=== PATIENT | female | born 1955 | race Caucasian/White ===

== ENCOUNTER 2017-03-27 23:12 | Emergency (ER) | payer MEDICAID ==
[~2017-03-27] VITALS: Ht 152.4 cm; Wt 49.6 kg
[2017-03-27 23:14] VITALS: BP 113/66
== END 2017-03-28 00:11 | disposition home or self-care (01) ==
LOC: ED 03-28 00:09
DX: H10.232 Serous conjunctivitis, except viral, left eye (principal)
CPT/HCPCS: 99283

== ENCOUNTER 2017-08-09 13:27 | Emergency (ER) | payer MEDICAID ==
[~2017-08-09] VITALS: Ht 152.4 cm; Wt 45.7 kg
[2017-08-09 13:34] VITALS: BP 113/57
[2017-08-09] MEDS ORDERED: FAMOTIDINE 20 MG TABLET PO ONE (14:30)
[2017-08-09] MEDS ORDERED: FAMOTIDINE 20 MG TABLET ONE (14:50)
[2017-08-09] MEDS ORDERED: TRIAMCINOLONE ACETONIDE 40 MG/ML, 1ML IM ONE (15:00)
== END 2017-08-09 15:30 | disposition home or self-care (01) ==
LOC: ED 15:24
DX: R21 Rash and other nonspecific skin eruption (principal)
CPT/HCPCS: 96372; 99283; J3301; Q0177

== ENCOUNTER 2017-12-28 03:53 | Emergency (ER) | payer MEDICAID ==
[~2017-12-28] VITALS: Ht 152.4 cm; Wt 48.1 kg
[2017-12-28 04:41] LABS: MICROSCOPIC AUTO
[2017-12-28 04:43] LABS: CULTURE INDICATED? NO
[2017-12-28 04:51] LABS: BASOPHILS # (AUTO) 0.04 x10^3/uL (0-0.1); BASOPHILS % (AUTO) 1 % (0-1); EOSINOPHILS # (AUTO) 0.27 x10^3/uL (0-0.4); EOSINOPHILS % (AUTO) 3 % (1-7); LYMPHOCYTES # (AUTO) 1.91 x10^3/uL (1-3.4); LYMPHOCYTES % (AUTO) 21 % (22-44); MD NO; MEAN CORPUSCULAR HEMOGLOBIN 25.7 pg (27.0-34.8); MEAN CORPUSCULAR HGB CONC 32.2 g/dL (32.4-35.8); MEAN CORPUSCULAR VOLUME 79.8 fL (80-100); MEAN PLATELET VOLUME 7.4 fL (7.4-10.4); MONOCYTES # (AUTO) 1.12 x10^3/uL (0.2-0.8); MONOCYTES % (AUTO) 12 % (2-9); NEUTROPHILS # (AUTO) 5.81 x10^3/uL (1.8-6.8); NEUTROPHILS % (AUTO) 63 % (42-75); PLATELET COUNT 357 x10^3/uL (130-400); RED BLOOD COUNT 4.21 x10^6/uL (3.82-5.3); RED CELL DISTRIBUTION WIDTH 16.7 % (9.6-15.2)
[2017-12-28 04:58] LABS: ALBUMIN 2.7 g/dL (3.4-5.0); ANION GAP 7 mmol/L (5-15); CALCIUM 8.7 mg/dL (8.5-10.1); CHLORIDE 110 mmol/L (98-107)
[2017-12-28 05:02] LABS: ALANINE AMINOTRANSFERASE 19 U/L (12-78); ALKALINE PHOSPHATASE 84 U/L (45-117); BILIRUBIN,TOTAL 0.3 mg/dL (0.2-1.0); CREATININE 0.74 mg/dL (0.55-1.02); TOTAL PROTEIN 6.7 g/dL (6.4-8.2)
[2017-12-28] MEDS ORDERED: SODIUM CHLORIDE 0.9% 1,000ML IVBOLUS ONE (05:30)
[2017-12-28 05:42] VITALS: BP 112/52
== END 2017-12-28 07:15 | disposition home or self-care (01) ==
LOC: ED 05:59
DX: R10.32 Left lower quadrant pain (principal); D50.9 Iron deficiency anemia, unspecified; K76.0 Fatty (change of) liver, not elsewhere classified; F17.210 Nicotine dependence, cigarettes, uncomplicated; Z88.5 Allergy status to narcotic agent; Z88.2 Allergy status to sulfonamides; Z88.6 Allergy status to analgesic agent
CPT/HCPCS: 36415; 74176; 80053; 81001; 83690; 85025; J7030; 99285

== ENCOUNTER 2017-12-28 23:18 | Emergency (ER) | payer MEDICAID ==
[~2017-12-28] VITALS: Ht 152.4 cm; Wt 47.7 kg
[2017-12-29 00:26] LABS: BASOPHILS # (AUTO) 0.06 x10^3/uL (0-0.1); BASOPHILS % (AUTO) 1 % (0-1); EOSINOPHILS # (AUTO) 0.28 x10^3/uL (0-0.4); EOSINOPHILS % (AUTO) 4 % (1-7); LYMPHOCYTES # (AUTO) 2.18 x10^3/uL (1-3.4); LYMPHOCYTES % (AUTO) 29 % (22-44); MD NO; MEAN CORPUSCULAR HGB CONC 31.8 g/dL (32.4-35.8); MEAN CORPUSCULAR VOLUME 78.8 fL (80-100); MEAN PLATELET VOLUME 7.1 fL (7.4-10.4); MONOCYTES # (AUTO) 0.84 x10^3/uL (0.2-0.8); MONOCYTES % (AUTO) 11 % (2-9); NEUTROPHILS # (AUTO) 4.16 x10^3/uL (1.8-6.8); NEUTROPHILS % (AUTO) 55 % (42-75); PLATELET COUNT 361 x10^3/uL (130-400); RED BLOOD COUNT 4.54 x10^6/uL (3.82-5.3); RED CELL DISTRIBUTION WIDTH 16.5 % (9.6-15.2)
[2017-12-29 00:37] LABS: ALANINE AMINOTRANSFERASE 20 U/L (12-78); ALBUMIN 3.1 g/dL (3.4-5.0); ANION GAP 7 mmol/L (5-15); CALCIUM 8.6 mg/dL (8.5-10.1); CHLORIDE 111 mmol/L (98-107); CREATININE 0.65 mg/dL (0.55-1.02)
[2017-12-29 00:40] LABS: ALKALINE PHOSPHATASE 89 U/L (45-117); BILIRUBIN,TOTAL 0.2 mg/dL (0.2-1.0); TOTAL PROTEIN 7.3 g/dL (6.4-8.2)
[2017-12-29 01:22] VITALS: BP 110/56
== END 2017-12-29 01:25 | disposition home or self-care (01) ==
LOC: ED 23:59
DX: R10.32 Left lower quadrant pain (principal); Z90.49 Acquired absence of other specified parts of digestive tract
CPT/HCPCS: 36415; 80053; 83605; 85025; 99284

== ENCOUNTER 2019-01-21 20:33 | Observation (INO) | payer MEDICAID, OTHER ==
[~2019-01-21] VITALS: Ht 154.9 cm; Wt 45.2 kg
--- NOTE | 2019-01-21 21:08 | NUR ---
PT TO ROOM AT THIS TIME. PT SLEEPING IN LOBBY. AMBULATORY TO ROOM. PT SEEMED CONFUSED. PRIMARY RN NOTIFIED.
--- NOTE | 2019-01-21 21:47 | NUR ---
ERP NOTIFIED ABOUT PT BEHAVIOR. PT DENIES ETOH. LABS ORDERED. NEURO CHECK PERFORMED AT BS. ERP NOT CONCERNED ABOUT NEURO EVENT OF ANY SORT.
[2019-01-21 22:00] LABS: BASOPHILS # (AUTO) 0.11 x10^3/uL (0-0.1); BASOPHILS % (AUTO) 1 % (0-1); EOSINOPHILS # (AUTO) 0.28 x10^3/uL (0-0.4); EOSINOPHILS % (AUTO) 4 % (1-7); LYMPHOCYTES # (AUTO) 2.55 x10^3/uL (1-3.4); LYMPHOCYTES % (AUTO) 32 % (22-44); MD NO; MEAN CORPUSCULAR HEMOGLOBIN 20.6 pg (27.0-34.8); MEAN CORPUSCULAR HGB CONC 30.3 g/dL (32.4-35.8); MEAN CORPUSCULAR VOLUME 67.8 fL (80-100); MEAN PLATELET VOLUME 6.8 fL (7.4-10.4); MONOCYTES # (AUTO) 1.15 x10^3/uL (0.2-0.8); MONOCYTES % (AUTO) 14 % (2-9); NEUTROPHILS # (AUTO) 3.91 x10^3/uL (1.8-6.8); NEUTROPHILS % (AUTO) 49 % (42-75); PLATELET COUNT 399 x10^3/uL (130-400); RED CELL DISTRIBUTION WIDTH 19.2 % (9.6-15.2)
[2019-01-21 22:03] LABS: ALANINE AMINOTRANSFERASE 21 U/L (12-78); ALBUMIN 2.9 g/dL (3.4-5.0); ANION GAP 3 mmol/L (5-15); CALCIUM 8.5 mg/dL (8.5-10.1); CHLORIDE 110 mmol/L (98-107)
[2019-01-21 22:07] LABS: ALKALINE PHOSPHATASE 104 U/L (45-117); BILIRUBIN,TOTAL 0.1 mg/dL (0.2-1.0); TOTAL PROTEIN 6.9 g/dL (6.4-8.2); TROPONIN I < 0.015 ng/mL (0.000-0.045)
--- NOTE | 2019-01-21 22:08 | NUR ---
PT SLEEPING IN [facility] AT THIS TIME; NADN. JAMES.
[2019-01-21] MEDS ORDERED: hydrALAzine 20 MG/ML, 1ML IVPush PRN (23:00)
[2019-01-21] MEDS ORDERED: ASPIRIN 325 MG TABLET EC PO ONE (23:00)
--- NOTE | 2019-01-21 23:17 | NUR ---
REPORT OF PT TO SHANNAN TORRES. ALL QUESTIONS ANSWERED. PT UNABLE TO BLOW BREATHALYZER SUCCESSFULLY, SO ERP NOTIFIED. BAILEY ATKINSON TO ADD ON ETHANOL TO LABS. MANUAL EQUIPMENT MECHANIC DARA CALLED AND NOTIFIED.
[2019-01-21] MEDS ORDERED: ASPIRIN 325 MG TABLET EC ONE (23:20)
--- NOTE | 2019-01-21 23:22 | NUR ---
PT MEDICATED WITH ECOTRIN PER MAR PRIOR TO PT TRANSPORT TO FLOOR. REPORT OF PT TO SHANNAN TORRES. ALL QUESTIONS ANSWERED.
[2019-01-21 23:41] LABS: TOTAL IRON BINDING CAPACITY 428 mcg/dL (250-450)
[2019-01-21 23:42] LABS: % IRON SATURATION 4 % (20-55); IRON LEVEL 18 mcg/dL (50-170)
[2019-01-21 23:43] LABS: TROPONIN I < 0.015 ng/mL (0.000-0.045)
[2019-01-21 23:52] LABS: BASOPHILS # (AUTO) 0.13 x10^3/uL (0-0.1); BASOPHILS % (AUTO) 2 % (0-1); EOSINOPHILS # (AUTO) 0.16 x10^3/uL (0-0.4); EOSINOPHILS % (AUTO) 2 % (1-7); LYMPHOCYTES # (AUTO) 2.63 x10^3/uL (1-3.4); LYMPHOCYTES % (AUTO) 34 % (22-44); MD SCAN; MEAN CORPUSCULAR HEMOGLOBIN 20.5 pg (27.0-34.8); MEAN CORPUSCULAR HGB CONC 30.1 g/dL (32.4-35.8); MEAN CORPUSCULAR VOLUME 68.1 fL (80-100); MEAN PLATELET VOLUME 7.1 fL (7.4-10.4); MONOCYTES % (AUTO) 10 % (2-9); NEUTROPHILS % (AUTO) 52 % (42-75); PLATELET COUNT 144 x10^3/uL (130-400); RED BLOOD COUNT 3.82 x10^6/uL (3.82-5.3); RED CELL DISTRIBUTION WIDTH 19.6 % (9.6-15.2)
[2019-01-22] VITALS: BP 118/71
[2019-01-22] MEDS: HEPARIN 5,000 UNITS/ML, 1ML SQ SCH ×2 (00:30→10:16)
[2019-01-22 05:13] LABS: ALBUMIN 2.9 g/dL (3.4-5.0); ANION GAP 7 mmol/L (5-15); CALCIUM 8.4 mg/dL (8.5-10.1); CHLORIDE 111 mmol/L (98-107)
[2019-01-22 05:20] LABS: ALANINE AMINOTRANSFERASE 22 U/L (12-78); ALKALINE PHOSPHATASE 101 U/L (45-117); BILIRUBIN,TOTAL 0.2 mg/dL (0.2-1.0); CHOL/HDL RATIO 2.8; CHOLESTEROL, TOTAL 169 mg/dL (140-239); CREATININE 0.78 mg/dL (0.55-1.02); HDL CHOL % 36 % (28-40); HDL CHOLESTEROL (DIRECT) 61 mg/dL (40-60); LDL CHOLESTEROL,CALCULATED 87 mg/dL (54-169); LDL/HDL RATIO 1.4 (0.5-3.0); TOTAL PROTEIN 6.8 g/dL (6.4-8.2); TRIGLYCERIDES 104 mg/dL (50-200); TROPONIN I < 0.015 ng/mL (0.000-0.045); VLDL CHOLESTEROL 21 mg/dL (0-25)
[2019-01-22 06:29] VITALS: BP 124/60
[2019-01-22 13:34] VITALS: BP 135/75
[2019-01-22] MEDS ORDERED: ASPI81TA59 PO ×2 (17:37)
== END 2019-01-22 18:06 | disposition home or self-care (01) ==
LOC: ED 22:19 → EDIP 22:23 → INTOOBSV 22:23 → 5SO 23:56
PROVIDERS: ADMIT Family Medicine; ATTEND Internal Medicine
DX: R07.89 Other chest pain (principal); R55 Syncope and collapse; D50.9 Iron deficiency anemia, unspecified; E88.09 Other disorders of plasma-protein metabolism, not elsewhere classified; F17.210 Nicotine dependence, cigarettes, uncomplicated; Z90.49 Acquired absence of other specified parts of digestive tract; Z90.711 Acquired absence of uterus with remaining cervical stump; Z88.2 Allergy status to sulfonamides; Z88.5 Allergy status to narcotic agent; Z88.8 Allergy status to other drugs, medicaments and biological substances
CPT/HCPCS: 36415; 71046; 80053; 80061; 80307; 83540; 83550; 84484; 85025; 93005; 93017; 96372; 99284; G0378; J1644

== ENCOUNTER 2021-02-07 01:41 | Emergency (ER) | payer MEDICAID ==
[~2021-02-07] VITALS: Ht 152.4 cm; Wt 49.8 kg
[~2021-02-07 01:41] MED LIST: ASPI81TA59 PO
[2021-02-07 01:46] VITALS: BP 113/53
--- NOTE | 2021-02-07 03:54 | NUR ---
SAIGE AT BEDSIDE FOR EVAL AND POC
[2021-02-07 04:24] LABS: BASOPHILS % (AUTO) 1 % (0-1); EOSINOPHILS % (AUTO) 2 % (1-7); LYMPHOCYTES % (AUTO) 24 % (22-44); MEAN CORPUSCULAR HEMOGLOBIN 27.8 pg (27.0-34.8); MEAN CORPUSCULAR HGB CONC 32.7 g/dL (32.4-35.8); MEAN PLATELET VOLUME 6.9 fL (7.4-10.4); MONOCYTES % (AUTO) 11 % (2-9); NEUTROPHILS % (AUTO) 62 % (42-75); PLATELET COUNT 400 x10^3/uL (130-400); RED CELL DISTRIBUTION WIDTH 14.8 % (9.6-15.2)
[2021-02-07 04:25] LABS: MICROSCOPIC INDICATED
[2021-02-07 04:33] LABS: ALANINE AMINOTRANSFERASE 24 U/L (12-78); ALBUMIN 2.9 g/dL (3.4-5.0); ANION GAP 2 mmol/L (5-15); CHLORIDE 107 mmol/L (98-107); CREATININE 0.71 mg/dL (0.55-1.02)
[2021-02-07 04:35] LABS: ALKALINE PHOSPHATASE 129 U/L (45-117); BILIRUBIN,TOTAL 0.4 mg/dL (0.2-1.0); TOTAL PROTEIN 7.6 g/dL (6.4-8.2)
--- NOTE | 2021-02-07 05:08 | NUR ---
Patient/Caregiver given discharge instructions and they have confirmed that they understand the instructions. Patient ambulatory with steady gait. NAD, all questions answered appropriately, denies additional needs at this time. No personal belongings left in room after discharge.
== END 2021-02-07 05:42 | disposition home or self-care (01) ==
LOC: ED 05:00
DX: N30.90 Cystitis, unspecified without hematuria (principal); N39.0 Urinary tract infection, site not specified
CPT/HCPCS: 36415; 80053; 81001; 85025; 87077; 87086; 87186; 99283